=== PATIENT | female | born 1995 | race Caucasian/White ===

== ENCOUNTER 2017-01-11 23:50 | Emergency (ER) | payer SELFPAY ==
--- NOTE | 2017-01-12 01:06 | ER Document Report ---
ED Medical Screen (RME) - General Stated Complaint: URINARY SYMPTOMS Notes: 21 year old female, chief complaint of right flank pain x 6 days, states she is taking AZO for urinary tract infection, denies dysuria, denies abdominal pain, denies nausea vomiting, denies fever or chills. She states she has a past medical history of kidney stones. She denies ever passing a kidney stone. TRAVEL OUTSIDE OF THE [place] IN LAST 30 DAYS: No - Related Data Allergies/Adverse Reactions: No Known Allergies Allergy (Unverified 01/12/17 00:51) Past Medical History - Social History Chew tobacco use (# tins/day): No Frequency of alcohol use: None Drug Abuse: None Renal/ Medical History: Denies: Hx Peritoneal Dialysis Physical Exam - Vital signs Vitals: Temp Pulse Resp BP Pulse Ox 97.6 F 81 20 108/76 100 01/12/17 00:11 01/12/17 00:11 01/12/17 00:11 01/12/17 00:11 01/12/17 00:11 - Abdominal Inspection: Normal Tenderness: Nontender. No: Tender, Guarding - Back Back: No: CVA tenderness, Vertebra tenderness Course - Re-evaluation Re-evalutation: No CVA tenderness, no abdominal tenderness, exam is limited by patient sitting in a chair. Ordering lab workup, suspect muscular - Vital Signs Vital signs: Temp Pulse Resp BP Pulse Ox 97.6 F 81 20 108/76 100 01/12/17 00:11 01/12/17 00:11 01/12/17 00:11 01/12/17 00:11 01/12/17 00:11
[2017-01-12 02:28] LABS: ABSOLUTE EOSINOPHILS # (AUTO) 0.2 10^3/uL (0.0-0.6); ABSOLUTE LYMPHOCYTES (AUTO) 2.8 10^3/uL (0.5-4.7); ABSOLUTE MONOCYTES (AUTO) 0.7 10^3/uL (0.1-1.4); ABSOLUTE NEUT (AUTO) 4.7 10^3/uL (1.7-8.2); BASOPHILS % (AUTO) 0.5 % (0-2); EOSINOPHILS % (AUTO) 2.3 % (0-6); HEMOGLOBIN 11.6 g/dL (12.0-15.5); HGB HCT DIFFERENCE 0.8; LYMPHOCYTES % (AUTO) 33.4 % (13-45); MEAN CORPUSCULAR VOLUME 88 fl (80-97); MONOCYTES % (AUTO) 8.4 % (3-13); RED BLOOD COUNT 3.86 10^6/uL (3.72-5.28); RED CELL DISTRIBUTION WIDTH 13.2 % (11.5-14.0); SEGMENTED NEUTROPHILS % (AUTO) 55.4 % (42-78); WHITE BLOOD COUNT 8.5 10^3/uL (4.0-10.5)
[2017-01-12 02:39] LABS: APPEARANCE,URINE SLIGHTLY-CLOUDY; BILIRUBIN,URINE NEGATIVE (NEGATIVE); GLUCOSE, URINE NEGATIVE (NEGATIVE); KETONES,URINE TRACE mg/dL (NEGATIVE); LEUKOCYTE ESTERASE,URINE NEGATIVE (NEGATIVE); NITRITE,URINE NEGATIVE (NEGATIVE); PROTEIN,URINE NEGATIVE (NEGATIVE)
[2017-01-12 02:50] LABS: ALANINE AMINOTRANSFERASE 27 U/L (9-52); ALBUMIN 4.4 g/dL (3.5-5.0); ALKALINE PHOSPHATASE 52 U/L (38-126); ANION GAP 12 (5-19); ASPARTATE AMINO TRANSFERASE 18 U/L (14-36); BILIRUBIN,TOTAL 0.7 mg/dL (0.2-1.3); BLOOD UREA NITROGEN 16 mg/dL (7-20); CALCIUM 9.7 mg/dL (8.4-10.2); CARBON DIOXIDE 25 mmol/L (22-30); CHLORIDE 104 mmol/L (98-107); GLUCOSE 101 mg/dL (75-110); POTASSIUM 3.8 mmol/L (3.6-5.0); SODIUM 140.8 mmol/L (137-145); TOTAL PROTEIN 7.3 g/dL (6.3-8.2)
[2017-01-12] MEDS ORDERED: CEPHALEXIN 500 MG CAPSULE PO ONE (03:18)
[2017-01-12] MEDS ORDERED: DIAZEPAM 5 MG TABLET PO ONE (03:18)
--- NOTE | 2017-01-12 03:21 | ER Document Report ---
ED GI/ - General Chief Complaint: Flank Pain Stated Complaint: URINARY SYMPTOMS Time seen by provider: 03:10 Notes: 21 year old female, chief complaint of right flank pain x 6 days, states she is taking AZO for urinary tract infection, denies dysuria, denies abdominal pain, denies nausea vomiting, denies fever or chills. She states she has a past medical history of kidney stones. She denies ever passing a kidney stone. Denies any other medical history. TRAVEL OUTSIDE OF THE [place] IN LAST 30 DAYS: No - Related Data Allergies/Adverse Reactions: No Known Allergies Allergy (Unverified 01/12/17 00:51) Past Medical History - General Information source: Patient - Social History Smoking Status: Never Smoker Chew tobacco use (# tins/day): No Frequency of alcohol use: None Drug Abuse: None Lives with: Family Family History: Reviewed & Not Pertinent Patient has suicidal ideation: No Patient has homicidal ideation: No Renal/ Medical History: Denies: Hx Peritoneal Dialysis Surgical Hx: Negative Review of Systems - Review of Systems Constitutional: No symptoms reported EENT: No symptoms reported Cardiovascular: No symptoms reported Respiratory: No symptoms reported Gastrointestinal: No symptoms reported Genitourinary: See HPI Female Genitourinary: See HPI Musculoskeletal: See HPI Skin: No symptoms reported Hematologic/Lymphatic: No symptoms reported Neurological/Psychological: No symptoms reported Physical Exam - Vital signs Vitals: Temp Pulse Resp BP Pulse Ox 97.6 F 81 20 108/76 100 01/12/17 00:11 01/12/17 00:11 01/12/17 00:11 01/12/17 00:11 01/12/17 00:11 Interpretation: Normal - General General appearance: Appears well, Alert In distress: None - HEENT Head: Normocephalic, Atraumatic Eyes: Normal Pupils: PERRL - Respiratory Respiratory status: No respiratory distress Chest status: Nontender Breath sounds: Normal Chest palpation: Normal - Cardiovascular Rhythm: Regular Heart sounds: Normal auscultation Murmur: No - Abdominal Inspection: Normal Distension: No distension Bowel sounds: Normal Tenderness: Nontender Organomegaly: No organomegaly - Back Back: Tender - Patient ambulates with what appears to be discomfort, no midline tenderness, no saddle anesthesia, normal upper and lower extremity range of motion, strength, distal neurovascular exam. There is noted tenderness in the paraspinal region along the mid to lower spine on the right side, no CVA tenderness, no abnormalities noted otherwise - Extremities General upper extremity: Normal inspection, Nontender, Normal color, Normal ROM , Normal temperature General lower extremity: Normal inspection, Nontender, Normal color, Normal ROM , Normal temperature, Normal weight bearing. No: Matthew's sign - Neurological Neuro grossly intact: Yes Cognition: Normal Orientation: AAOx4 [place] Coma Scale Eye Opening: Spontaneous [place] Coma Scale Verbal: Oriented [place]ari Coma Scale Motor: Obeys Commands [place] Coma Scale Total: 15 Speech: Normal Motor strength normal: LUE, RUE, LLE, RLE Sensory: Normal - Psychological Associated symptoms: Normal affect, Normal mood - Skin Skin Temperature: Warm Skin Moisture: Dry Skin Color: Normal Course - Re-evaluation Re-evalutation: Patient moves and walks with some discomfort, otherwise she is in no distress. Patient has paraspinal tenderness on the right mid to lower back, normal back exam otherwise, normal neurological exam, no CVA tenderness, urine unremarkable , labs unremarkable. No hematuria. Patient insists that she has painful urination on my second evaluation, states that she has had urine cultures 1 with normal urines and these found infections. Agreed to cover patient with Keflex, treating with muscle relaxer, discussed primary care follow-up, discussed return precautions, patient states understanding and agreement. - Vital Signs Vital signs: Temp Pulse Resp BP Pulse Ox 97.5 F 76 14 114/73 100 01/12/17 03:52 01/12/17 03:52 01/12/17 03:52 01/12/17 03:52 01/12/17 03:52 - Laboratory Result Diagrams: 01/12/17 02:13 01/12/17 02:13 Laboratory results interpreted by me: 01/12/17 01/12/17 02:13 02:13 Hgb 11.6 L Hct 34.0 L Urine Ketones TRACE H Urine Urobilinogen 2.0 H Discharge - Discharge Clinical Impression: Flank pain, Dysuria Condition: Stable Disposition: HOME, SELF-CARE Additional Instructions: There appears to be a muscular component to her symptoms, apply heat to the area , take the Robaxin muscle relaxer, avoid lifting and twisting until symptoms resolve if possible. Take the Keflex antibiotic as directed for urinary symptoms. Follow-up with primary care. Return the emergency department for any concerning or worsening symptoms including vomiting, fever, etc. Prescriptions: Cephalexin Monohydrate [Keflex 500 mg Capsule] 500 mg PO BID #6 capsule Methocarbamol [Robaxin 750 mg Tablet] 750 mg PO Q6 #20 tablet Forms: Return to Work
[2017-01-12 03:55] VITALS: BP 114/73
== END 2017-01-12 03:56 | disposition home or self-care (01) ==
LOC: ER 23:50
DX: N39.0 Urinary tract infection, site not specified (principal); Z87.442 Personal history of urinary calculi
CPT/HCPCS: 36415; 80053; 81001; 81025; 85025; 99284

== ENCOUNTER 2017-03-09 12:52 | Emergency (ER) | payer OTHER ==
--- NOTE | 2017-03-09 14:04 | ER Document Report ---
HPI - HPI Patient complains to provider of: rash to the sides of both hands and all fingers Onset: Other - 1 week Onset/Duration: Gradual Pain Level: 2 Context: 21-year-old female complaining of tiny blisters to the lateral aspect of each finger of each hand for one week. No history of eczema. She is a patient of [facility]. The rash itches. Associated Symptoms: None Exacerbated by: Denies Relieved by: Denies Similar symptoms previously: Yes Recently seen / treated by doctor: No - ROS ROS below otherwise negative: Yes Systems Reviewed and Negative: Yes All other systems reviewed and negative - DERM Skin Color: Normal, [place] Past Medical History - General Information source: Patient - Social History Smoking Status: Never Smoker Frequency of alcohol use: None Drug Abuse: None Lives with: Family Family History: Reviewed & Not Pertinent - Medical History Medical History: Negative Renal/ Medical History: Denies: Hx Peritoneal Dialysis Past Surgical History: Reports: Hx Orthopedic Surgery - Jaw reconstruction - Immunizations Hx Diphtheria, Pertussis, Tetanus Vaccination: Yes Vertical Provider Document - CONSTITUTIONAL Agree With Documented VS: Yes Exam Limitations: No Limitations - INFECTION CONTROL TRAVEL OUTSIDE OF THE [place] 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 If you do not receive a survey, then you can go to the [facility] website, [email or web address] and place your comments about your very good care. Thank you very much. It was a pleasure being your medical provider today. Prescriptions: Prednisone [Deltasone 10 mg Tablet] 10 mg PO ASDIR PRN #21 tablet PRN Reason:
[2017-03-09 14:22] VITALS: BP 116/75
== END 2017-03-09 14:28 | disposition home or self-care (01) ==
LOC: ER 12:52
DX: L30.1 Dyshidrosis [pompholyx] (principal)
CPT/HCPCS: 99282